=== PATIENT | male | born 1970 | race Hispanic/Latino ===

== ENCOUNTER 2018-03-08 17:03 | Inpatient (IN) | payer MEDICAID, MEDICARE ==
[2018-03-08 17:14] VITALS: BMI 27.4
--- NOTE | 2018-03-08 19:27 | C.PDOC ---
History Of Present Illness 47 y/o male presents with c/o epigastric abdominal pain for the last 2 days. He and his girlfriend checked into a residential today after leaving [place] hastily and has nowhere to go for HD tomorrow (usually T/H/Sat HD, L arm AV fistula), last HD was yesterday. He complaints of 5-10 watery stools today but denies any nausea, vomiting, fever, or chills. h/o Pancreatitis @ Age 19 with puss drained from abd/pancreas area, then pt became diabetic soon after. 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.), End Stage Renal Disease, Chronic Kidney Disease - [facility] Procedures DX ULTRASOUND-DIGESTIVE (03/17/15) ESOPHAGOGASTRODUODENOSCOPY [EGD] W/CLOSED BIOPSY (03/17/15) EXCISION OF STOMACH, ENDO, DIAGN (04/07/15) HEMODIALYSIS (03/13/15) PERFORMANCE OF URINARY FILTRATION, MULTIPLE (05/19/15) PERFORMANCE OF URINARY FILTRATION, SINGLE (05/29/15) Family History: States: Unknown Family Hx - Social History Hx Alcohol Use: No Hx Substance Use: No - Immunization History Hx Tetanus Toxoid Vaccination: No Hx Influenza Vaccination: Yes Hx Pneumococcal Vaccination: Yes Review Of Systems Constitutional: Negative for: Fever, Chills Cardiovascular: Negative for: Chest Pain Respiratory: Negative for: Shortness of Breath Gastrointestinal: Positive for: Abdominal Pain. Negative for: Nausea, Vomiting , Diarrhea Genitourinary: Negative for: Dysuria, Frequency, Incontinence Neurological: Negative for: Weakness, Dizziness Physical Exam - Physical Exam Appears: Non-toxic, No Acute Distress Skin: Normal Color, Warm, Dry Head: Atraumatic, Normacephalic Eye(s): bilateral: Normal Inspection, PERRL, EOMI Oral Mucosa: Moist Neck: Normal ROM Chest: Symmetrical Cardiovascular: Rhythm Regular, No Murmur Respiratory: Normal Breath Sounds, No Accessory Muscle Use Gastrointestinal/Abdominal: Soft, Tenderness (to the epigastrium), No Guarding, No Rebound Extremity: Bilateral: Atraumatic, Normal Color And Temperature, Normal ROM Neurological/Psych: Oriented x3, Normal Speech ED Course And Treatment - Laboratory Results Result Diagrams: 03/08/18 19:37 03/08/18 19:37 Lab Interpretation: Abnormal (BUN/creat elev, K+ wnl) ECG: Interpreted By Ut ECG Rhythm: Sinus Rhythm ECG Interpretation: Normal Rate From EC O2 Sat by Pulse Oximetry: 100 (RA) Pulse Ox Interpretation: Normal - Radiology CXR: Interpreted by Me CXR Interpretation: Yes: No Acute Disease - CT Scan/US CT Abd and Pelvis Other Rad Studies (CT/US): Read By Radiologist, Radiology Report Reviewed CT/US Interpretation: IMPRESSION: There is diffuse small bowel wall thickening , consistent with inflammation, infection, or infiltration. Nonspecific fluid- filled large bowel loops without a clear transition, possibly related to a diarrheal-type. illness. Please correlate clinically. Incidental, surgical, and other non-acute findings are described above. Reevaluation Time: 00:26 Reassessment Condition: Improved - Physician Consult Information Outcome Of Conversation: 0030: d/w Dr. Zuniga- Medicine Party Host, ok to admit. 0030: calls to consult with Nephrolog- Dr Muller covering Dr. Sharma's group, consult placed. Medical Decision Making Medical Decision Making: Suddenly relocated to this area without local Elevator Pilot- Nephrology consulted, consider HD Sat/Sun Diarrhea: non-infectuous pain and frequency controlled with Morphine Clinically dry, consider gentle hydration overnight. Pancreatitis Lipase 454 h/o same @ age 19 CT abd (without contrast) no sig findings of Pancreas. follow Lipase levels NPO D5NS Disposition Doctor Will See Patient In The: Hospital Counseled Patient/Family Regarding: Studies Performed, Diagnosis - Disposition Disposition: HOSPITALIZED Disposition Time: 00:31 Condition: GOOD Forms: [employer] ([place]) - Clinical Impression Clinical Impression: Diarrhea, Pancreatitis, ESRD (end stage renal disease) on dialysis - Scribe Statement The provider has reviewed the documentation as recorded by the Scribe (Avani Hawley) Provider Attestation: All medical record entries made by the Scribe were at my direction and personally dictated by me. I have reviewed the chart and agree that the record accurately reflects my personal performance of the history, physical exam, medical decision making, and the department course for this patient. I have also personally directed, reviewed, and agree with the discharge instructions and disposition.
[2018-03-08] MEDS ORDERED: Morphine 4 MG/ML VIAL ONE ×2 (19:39→23:18)
[2018-03-08 19:49] LABS: BASO # 0.1 K/uL (0.0-0.2); BASO % 0.7 % (0.0-2.0); EOS # 0.4 K/uL (0.0-0.7); EOS % 5.2 % (0.0-4.0); HEMOGLOBIN 11.7 g/dL (12.0-18.0); LYMPH # 1.4 K/uL (1.0-4.3); LYMPH % 16.5 % (20.0-40.0); MEAN CELL VOLUME 87.2 fL (80.0-94.0); MEAN CORPUSCULAR HEMOGLOBIN 28.3 pg (27.0-31.0); MEAN CORPUSCULAR HGB CONC 32.4 g/dL (33.0-37.0); MEAN PLATELET VOLUME 9.4 fL (7.2-11.7); MONO % 12.4 % (0.0-10.0); NEUT # 5.4 K/uL (1.8-7.0); NEUT % 65.2 % (50.0-75.0); RBC 4.16 Mil/uL (4.40-5.90); RED CELL DISTRIBUTION WIDTH 17.1 % (11.5-14.5); WHITE BLOOD COUNT 8.4 K/uL (4.8-10.8)
[2018-03-08 19:57] LABS: INR 1.1; PROTHROMBIN TIME 12.4 SECONDS (9.7-12.2)
[2018-03-08 20:12] LABS: ALB/GLOB RATIO 1.5 (1.0-2.1); ALBUMIN 4.3 g/dL (3.5-5.0); CALCIUM 9.1 mg/dl (8.6-10.4)
[2018-03-08 20:13] LABS: TROPONIN I 0.067 ng/mL (0.00-0.120)
[2018-03-08 22:54] LABS: SQUAMOUS EPITHIAL 51 /hpf (0-5); URINE BACTERIA RARE (<OCC); URINE BILIRUBIN NEGATIVE (NEGATIVE); URINE BLOOD TRACE (NEGATIVE); URINE CLARITY Hazy (Clear); URINE COLOR YELLOW (YELLOW); URINE GLUCOSE (UA) 3+ mg/dL (Normal); URINE LEUKOCYTE ESTERASE TRACE Leu/uL (Negative); URINE PROTEIN 3+ mg/dL (NEGATIVE); URINE UROBILINOGEN NORMAL mg/dL (0.2-1.0)
[2018-03-09] MEDS ORDERED: Dextrose 5%/0.9% NS 1,000 ML IV ONE (00:50)
[2018-03-09] MEDS: Dextrose 5%/0.9% NS 1,000 ML IV SCH ×3 (00:51→19:00)
[2018-03-09] MEDS: HYDROmorphone 0.5 mg/0.5 ml ISec IVP PRN ×4 (03:18→21:28)
[2018-03-09] MEDS: (Novolog) Insulin Aspart, Recombinant 100 u/ml 10 ml vial SC SCH ×4 (07:50→21:19)
[2018-03-09] MEDS: Enoxaparin 30 mg Syringe SC SCH (09:32)
[2018-03-09] MEDS ORDERED: DiphenhydrAMINE 50 mg/ml Inj IVP ONE (10:45)
--- NOTE | 2018-03-09 12:38 | RAD ---
Date of service: 03/08/2018 PROCEDURE: Radiographs of the chest and abdomen (obstructive series) HISTORY: abd pain COMPARISON: No prior. TECHNIQUE: AP radiograph of the chest, with upright and supine radiographs of the abdomen. FINDINGS: CHEST: Lungs: Clear. Cardiovascular: Normal size heart. No pulmonary vascular congestion. Pleura: No pleural fluid. No pneumothorax. Other findings: None. ABDOMEN AND PELVIS: Bowel: There are multiple small air-fluid levels in the abdomen. Free air: None. Bones: Unremarkable. Other findings: A battery pack overlies the lower abdomen. IMPRESSION: Multiple small air-fluid levels in the abdomen which likely represent diarrhea. Clear lungs.
[2018-03-09] MEDS: Insulin Detemir 100 units/ml Vial (Levemir) SC SCH (21:19)
--- NOTE | 2018-03-09 22:20 | CP.PCM.CON ---
History of Present Illness - History of Present Illness History of Present Illness: renal consult note 47 y/o male presents with c/o epigastric abdominal pain for the last 2 days. He and his girlfriend checked into a jail today after leaving [place] hastily and has nowhere to go for HD tomorrow (usually T/H/Sat HD, L arm AV fistula), last HD was yesterday. He complaints of 5-10 watery stools today but denies any nausea, vomiting, fever, or chills. h/o Pancreatitis @ Age 19 with puss drained from abd/pancreas area, then pt became diabetic soon after. he [facility] but now is back in in jail meds reviewed complete ros is negative fam hx reviewed social hx reviewed vss heent normal op moist no jvd s1s2 present nor michelle distress ao times 3 skin normal cooperative left forarm Av access plan esrd/htn/abdominal pain.diarrhea/dm/anemia hd will do today lytes reviewed anemia epo with hd as needed bp resume home meds abdominal pain with diarrhea work up per primary team will need opt hd placement Past Patient History - Infectious Disease Hx of Infectious Diseases: None - Past Medical History & Family History Past Medical History?: Yes - Past Social History Smoking Status: Never Smoked - CARDIAC Hx Hypertension: Yes - PULMONARY Hx Respiratory Disorders: No - NEUROLOGICAL Hx Neurological Disorder: No - HEENT Hx HEENT Problems: No - RENAL Hx Chronic Kidney Disease: Yes - ENDOCRINE/METABOLIC Hx Endocrine Disorders: Yes Hx Diabetes Mellitus Type 2: Yes - HEMATOLOGICAL/ONCOLOGICAL Hx Anemia: Yes - INTEGUMENTARY Hx Dermatological Problems: No - MUSCULOSKELETAL/RHEUMATOLOGICAL Hx Musculoskeletal Disorders: No Hx Falls: No - GASTROINTESTINAL Hx Gastritis: Yes Hx Pancreatitis: Yes ( 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.) - GENITOURINARY/GYNECOLOGICAL Hx Genitourinary Disorders: No - PSYCHIATRIC Hx Substance Use: No - SURGICAL HISTORY Hx Surgeries: Yes (AV fistula,left foot with 2pins and 1 plate) - ANESTHESIA Hx Anesthesia: Yes Hx Anesthesia Reactions: No Hx Malignant Hyperthermia: No Meds Allergies/Adverse Reactions: Allergies Allergy/AdvReac Type Severity Reaction Status Date / Time No Known Allergies Allergy Verified 03/08/18 17:12 - Medications Medications: Current Medications Amlodipine Besylate (Norvasc) 10 mg PO DAILY [facility] Last Admin: 03/09/18 09:33 Dose: Not Given Calcium Acetate (Phoslo) 667 mg PO ACTID [facility] Last Admin: 03/09/18 16:00 Dose: 667 mg Clonidine HCl (Catapres) 0.3 mg PO Q6 [facility] Last Admin: 03/09/18 17:21 Dose: 0.3 mg Enoxaparin Sodium (Lovenox) 30 mg SC DAILY [facility] Last Admin: 03/09/18 09:32 Dose: 30 mg Hydromorphone HCl (Dilaudid) 0.5 mg IVP Q6H PRN PRN Reason: Pain, severe (8-10) Last Admin: 03/09/18 21:28 Dose: 0.5 mg Dextrose/Sodium Chloride (Dextrose 5%/0.9% Ns 1000 Ml) 1,000 mls @ 100 mls/hr IV .Q10H [facility] Last Admin: 03/09/18 19:00 Dose: 100 mls/hr Insulin Aspart (Novolog) 0 unit SC ACHS [facility] PRN Reason: Protocol Last Admin: 03/09/18 21:19 Dose: Not Given Insulin Detemir (Levemir) 15 unit SC HS [facility] Last Admin: 03/09/18 21:19 Dose: Not Given Metoclopramide HCl (Reglan) 10 mg PO Q6H PRN PRN Reason: Nausea/Vomiting Results - Vital Signs Recent Vital Signs: Last Vital Signs Temp 98.1 F 03/09/18 15:00 Pulse 79 03/09/18 15:00 Resp 20 03/09/18 15:00 BP 180/77 H 03/09/18 15:00 Pulse Ox 99 03/09/18 15:00 - Labs Result Diagrams: 03/08/18 19:37 03/08/18 19:37 Labs: Laboratory Results - last 24 hr 03/08/18 03/09/18 03/09/18 22:39 07:22 11:14 POC Glucose (mg/dL) 122 H Urine Color Yellow Urine Clarity Hazy Urine pH 5.0 Ur Specific [place] 1.045 H Urine Protein 3+ H Urine Glucose (UA) 3+ H Urine Ketones Negative Urine Blood Trace H Urine Nitrate Negative Urine Bilirubin Negative Urine Urobilinogen Normal Ur Leukocyte Esterase Trace H Urine WBC (Auto) 12 H Urine RBC (Auto) 6 H Ur Squamous Epith Cells 51 H Ur Transition Epith Cell 3 Urine Bacteria Rare Hep Bs Antigen Negative Hep Bs Antibody Hepatitis C Antibody 03/09/18 03/09/18 03/09/18 11:14 11:14 13:32 POC Glucose (mg/dL) 127 H Urine Color Urine Clarity Urine pH Ur Specific [place] Urine Protein Urine Glucose (UA) Urine Ketones Urine Blood Urine Nitrate Urine Bilirubin Urine Urobilinogen Ur Leukocyte Esterase Urine WBC (Auto) Urine RBC (Auto) Ur Squamous Epith Cells Ur Transition Epith Cell Urine Bacteria Hep Bs Antigen Hep Bs Antibody Negative Hepatitis C Antibody Negative 03/09/18 03/09/18 16:51 21:06 POC Glucose (mg/dL) 175 H 146 H Urine Color Urine Clarity Urine pH Ur Specific [place] Urine Protein Urine Glucose (UA) Urine Ketones Urine Blood Urine Nitrate Urine Bilirubin Urine Urobilinogen Ur Leukocyte Esterase Urine WBC (Auto) Urine RBC (Auto) Ur Squamous Epith Cells Ur Transition Epith Cell Urine Bacteria Hep Bs Antigen Hep Bs Antibody Hepatitis C Antibody
--- NOTE | 2018-03-10 03:36 | HP ---
The patient is a 47-year-old male. The patient was seen and examined at the bedside on 03/09/2018. I am doing history and physical for 03/09/2018. CHIEF COMPLAINT: Abdominal pain. HISTORY OF PRESENT ILLNESS: Mr. Mike Woodall is a 47-year-old male with persistent epigastric abdominal pain for the last two days. He and his girlfriend checked into the halfway today after leaving [place] hastily and has no way to go for hemodialysis tomorrow. He does this three times a week. Last hemodialysis was yesterday. He complains of watery stool today but denies any nausea or vomiting. No fever. No chills. Has paracentesis done on 02/03/2018 , drained from abdominal pancreatic areas. Then, patient became diabetic soon after that as per the patient. I am seeing this patient for the first time. I do not know his history, and the patient is not a good historian. PAST MEDICAL HISTORY: Anemia, diabetes mellitus, gastritis, hypertension, pancreatitis, history of pseudopancreatic cyst, end-stage renal disease, chronic kidney disease. FAMILY HISTORY: Father and mother, noncontributory. HABITS: Right now no smoking, no drug, no ethanol. REVIEW OF SYSTEMS: The patient was seen and examined at bedside in dialysis center, still having abdominal pain. No nausea, vomiting, or diarrhea at this moment. No fever, no chills, no shortness of breath. No weakness, no dizziness. No dysuria, no frequency, no incontinence. PHYSICAL EXAMINATION: VITAL SIGNS: Temperature 99.7, pulse 79, respiratory rate 16, blood pressure 154/83, pulse oximetry is 100. HEENT: Head normocephalic, atraumatic. Eyes PERRLA. Extraocular muscles are intact. Conjunctivae clear. Nose is patent. Mucous membranes moist. NECK: Supple. No carotid bruit. No JVD or thyromegaly. CHEST: Bilaterally symmetrical. HEART: S1 and S2 positive. LUNGS: Clear to auscultation. ABDOMEN: Soft. Tender, especially in the left upper quadrant. EXTREMITIES: No edema, no cyanosis. NEUROLOGIC: The patient is awake, alert. Moving all four extremities. Having the dialysis. LABORATORY DATA: White blood cells 8.4, hemoglobin 11.7, hematocrit 36.2, and platelets 263. Sodium 142, potassium 4.1, BUN 38, creatinine 1, and glucose 177. ASSESSMENT AND PLAN: Mr. Mike Woodall is a 47-year-old male with renal insufficiency, on hemodialysis three times a week, hyperglycemia. CT and ultrasound done shows diffuse small bowel wall thickening consistent with inflammation, infection, or infiltration; nonspecific fluid filled large bowel loop without a clear transection, possibly related to diarrheal type illness. Nephrology consult called. Gastrointestinal consult called. The patient was nothing per mouth. He was very hungry. He wants to eat. Clear liquid started. Diarrhea is improving. Pancreatitis is improving. The patient has history of gastritis, hypertension, pancreatic pseudo cyst. We will repeat labs. Wait for the input from Gastroenterology. We will follow up. Brianna Zuniga MD [facility]
[2018-03-10] MEDS: Dextrose 5%/0.9% NS 1,000 ML IV SCH ×3 (04:15→17:42)
[2018-03-10] MEDS: HYDROmorphone 0.5 mg/0.5 ml ISec IVP PRN ×3 (04:15→17:35)
--- NOTE | 2018-03-10 07:36 | CP.PCM.CON ---
History of Present Illness - History of Present Illness History of Present Illness: Gen Sx: Dr Van PT is a 47M who presents to for hemodialysis as he had no where else to go. While in ED pt reported he has has persistent epigastric pain for 48 hours, accompanied by diarrhea. Pt denies any N/V, F/C. 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 At time of examination pt reports his pain has already improved. He does state his pain medication is not lasting long enough PMH: anemia, DM, gastritis and gastroparesis, htn, pancreatitis, psuedocyst, ESRd on HD PSH: gastric pacemaker, panc debridement Review of Systems - Review of Systems All systems: reviewed and no additional remarkable complaints except (as per hpi ) Past Patient History - Infectious Disease Hx of Infectious Diseases: None - Past Medical History & Family History Past Medical History?: Yes - Past Social History Smoking Status: Never Smoked - CARDIAC Hx Hypertension: Yes - PULMONARY Hx Respiratory Disorders: No - NEUROLOGICAL Hx Neurological Disorder: No - HEENT Hx HEENT Problems: No - RENAL Hx Chronic Kidney Disease: Yes - ENDOCRINE/METABOLIC Hx Endocrine Disorders: Yes Hx Diabetes Mellitus Type 2: Yes - HEMATOLOGICAL/ONCOLOGICAL Hx Anemia: Yes - INTEGUMENTARY Hx Dermatological Problems: No - MUSCULOSKELETAL/RHEUMATOLOGICAL Hx Musculoskeletal Disorders: No Hx Falls: No - GASTROINTESTINAL Hx Gastritis: Yes Hx Pancreatitis: Yes ( 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.) - GENITOURINARY/GYNECOLOGICAL Hx Genitourinary Disorders: No - PSYCHIATRIC Hx Substance Use: No - SURGICAL HISTORY Hx Surgeries: Yes (AV fistula,left foot with 2pins and 1 plate) - ANESTHESIA Hx Anesthesia: Yes Hx Anesthesia Reactions: No Hx Malignant Hyperthermia: No Meds Allergies/Adverse Reactions: Allergies Allergy/AdvReac Type Severity Reaction Status Date / Time No Known Allergies Allergy Verified 03/08/18 17:12 - Medications Medications: Current Medications Amlodipine Besylate (Norvasc) 10 mg PO DAILY [facility] Last Admin: 03/09/18 09:33 Dose: Not Given Calcium Acetate (Phoslo) 667 mg PO ACTID [facility] Last Admin: 03/09/18 16:00 Dose: 667 mg Clonidine HCl (Catapres) 0.3 mg PO Q6 [facility] Last Admin: 03/10/18 06:00 Dose: 0.3 mg Enoxaparin Sodium (Lovenox) 30 mg SC DAILY [facility] Last Admin: 03/09/18 09:32 Dose: 30 mg Hydromorphone HCl (Dilaudid) 0.5 mg IVP Q6H PRN PRN Reason: Pain, severe (8-10) Last Admin: 03/10/18 04:15 Dose: 0.5 mg Dextrose/Sodium Chloride (Dextrose 5%/0.9% Ns 1000 Ml) 1,000 mls @ 100 mls/hr IV .Q10H [facility] Last Admin: 03/10/18 06:45 Dose: Not Given Insulin Aspart (Novolog) 0 unit SC ACHS [facility] PRN Reason: Protocol Last Admin: 03/09/18 21:19 Dose: Not Given Insulin Detemir (Levemir) 15 unit SC HS [facility] Last Admin: 03/09/18 21:19 Dose: Not Given Metoclopramide HCl (Reglan) 10 mg PO Q6H PRN PRN Reason: Nausea/Vomiting Physical Exam - Constitutional Appears: Non-toxic, Unkempt - Eye Exam Eye Exam: Normal appearance. absent: Scleral icterus - ENT Exam ENT Exam: Mucous Membranes Moist - Respiratory Exam Respiratory Exam: absent: Accessory Muscle Use, Respiratory Distress - Cardiovascular Exam Cardiovascular Exam: REGULAR RHYTHM. absent: Tachycardia - GI/Abdominal Exam GI & Abdominal Exam: Soft, Tenderness (epigastric but minimal). absent: Distended, Firm, Guarding, Hernia - Rectal Exam Rectal Exam: Deferred - Extremities Exam Extremities exam: Negative for: pedal edema Results - Vital Signs Recent Vital Signs: Last Vital Signs Temp 97.7 F 03/09/18 23:00 Pulse 73 03/10/18 05:30 Resp 20 03/10/18 05:30 BP 166/76 H 03/10/18 05:30 Pulse Ox 99 03/10/18 05:30 - Labs Result Diagrams: 03/08/18 19:37 03/08/18 19:37 Labs: Laboratory Results - last 24 hr 03/09/18 03/09/18 03/09/18 11:14 11:14 11:14 POC Glucose (mg/dL) Hep Bs Antigen Negative Hep Bs Antibody Negative Hepatitis C Antibody Negative 03/09/18 03/09/18 03/09/18 13:32 16:51 21:06 POC Glucose (mg/dL) 127 H 175 H 146 H Hep Bs Antigen Hep Bs Antibody Hepatitis C Antibody 03/10/18 07:15 POC Glucose (mg/dL) 172 H Hep Bs Antigen Hep Bs Antibody Hepatitis C Antibody Assessment & Plan - Assessment and Plan (Free Text) Assessment: 47M with ESRD on HD; acute pancreatitis Plan: ok for CLD cont IVF rec GI consult HD today no plans for surgical intervention will cont to follow will d/w Dr Carlota Meier, PGY4
[2018-03-10 08:17] LABS: MEAN CELL VOLUME 87.1 fL (80.0-94.0); MEAN CORPUSCULAR HEMOGLOBIN 28.9 pg (27.0-31.0); MEAN CORPUSCULAR HGB CONC 33.2 g/dL (33.0-37.0); MEAN PLATELET VOLUME 9.2 fL (7.2-11.7); RBC 3.28 Mil/uL (4.40-5.90); RED CELL DISTRIBUTION WIDTH 16.6 % (11.5-14.5); WHITE BLOOD COUNT 5.2 K/uL (4.8-10.8)
[2018-03-10] MEDS: (Novolog) Insulin Aspart, Recombinant 100 u/ml 10 ml vial SC SCH ×4 (08:20→21:40)
[2018-03-10 08:27] LABS: IRON 53 ug/dL (49-181)
[2018-03-10 08:29] LABS: HEMOGLOBIN 9.5 g/dL (12.0-18.0)
[2018-03-10 08:30] LABS: CALCIUM 8.8 mg/dl (8.6-10.4)
[2018-03-10 08:36] LABS: % IRON SATURATION 23 (20-55); TOTAL IRON BINDING CAPACITY 229 ug/dL (250-450)
[2018-03-10] MEDS ORDERED: Tramadol 25 mg PO PRN (08:55)
[2018-03-10 09:33] LABS: FOLATE 4.6 ng/mL
[2018-03-10] MEDS: Enoxaparin 30 mg Syringe SC SCH (10:39)
--- NOTE | 2018-03-10 11:00 | CP.PCM.CON ---
History of Present Illness - History of Present Illness History of Present Illness: Gi consult requested by Dr Zuniga- This is a 47 year old M who presents to ER for hemodialysis as he had no where else to go and lives in a [facility]. He does not have outpatient follow up. He vwas last admitted with GI at [facility] in 2014 when he had EGD that showed hiatal hernia and grade B esophagitis and chronic pancreatitis. He presents with loose watrey stools that he has had for more than 3 years. He had EUS with Dr Reed for pancreatic tail mass which was negative for malignancy. He complains of epigastric pain today and diarrhea with fatty foods associated with nausea and vomiting. He does not take pancreatic enzymes as outpatient. He had HD yesterday Review of Systems - Review of Systems Review of Systems: 12 point ROS unremarkable except that documented in HPI Past Patient History - Infectious Disease Hx of Infectious Diseases: None - Past Medical History & Family History Past Medical History?: Yes - Past Social History Smoking Status: Never Smoked - CARDIAC Hx Hypertension: Yes - PULMONARY Hx Respiratory Disorders: No - NEUROLOGICAL Hx Neurological Disorder: No - HEENT Hx HEENT Problems: No - RENAL Hx Chronic Kidney Disease: Yes - ENDOCRINE/METABOLIC Hx Endocrine Disorders: Yes Hx Diabetes Mellitus Type 2: Yes - HEMATOLOGICAL/ONCOLOGICAL Hx Anemia: Yes - INTEGUMENTARY Hx Dermatological Problems: No - MUSCULOSKELETAL/RHEUMATOLOGICAL Hx Musculoskeletal Disorders: No Hx Falls: No - GASTROINTESTINAL Hx Gastritis: Yes Hx Pancreatitis: Yes ( 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.) - GENITOURINARY/GYNECOLOGICAL Hx Genitourinary Disorders: No - PSYCHIATRIC Hx Substance Use: No - SURGICAL HISTORY Hx Surgeries: Yes (AV fistula,left foot with 2pins and 1 plate) - ANESTHESIA Hx Anesthesia: Yes Hx Anesthesia Reactions: No Hx Malignant Hyperthermia: No Meds Allergies/Adverse Reactions: Allergies Allergy/AdvReac Type Severity Reaction Status Date / Time No Known Allergies Allergy Verified 03/08/18 17:12 - Medications Medications: Current Medications Amlodipine Besylate (Norvasc) 10 mg PO DAILY [facility] Last Admin: 03/10/18 10:39 Dose: 10 mg Calcium Acetate (Phoslo) 667 mg PO ACTID [facility] Last Admin: 03/10/18 08:20 Dose: 667 mg Clonidine HCl (Catapres) 0.3 mg PO Q6 [facility] Last Admin: 03/10/18 06:00 Dose: 0.3 mg Enoxaparin Sodium (Lovenox) 30 mg SC DAILY [facility] Last Admin: 03/10/18 10:39 Dose: 30 mg Hydromorphone HCl (Dilaudid) 0.5 mg IVP Q4H PRN PRN Reason: Pain, severe (8-10) Dextrose/Sodium Chloride (Dextrose 5%/0.9% Ns 1000 Ml) 1,000 mls @ 100 mls/hr IV .Q10H [facility] Last Admin: 03/10/18 06:45 Dose: Not Given Insulin Aspart (Novolog) 0 unit SC ACHS [facility] PRN Reason: Protocol Last Admin: 03/10/18 08:20 Dose: 1 unit Insulin Detemir (Levemir) 15 unit SC [facility] Last Admin: 03/09/18 21:19 Dose: Not Given Metoclopramide HCl (Reglan) 10 mg PO Q6H PRN PRN Reason: Nausea/Vomiting Tramadol HCl (Ultram) 25 mg PO TID PRN PRN Reason: Pain, moderate (4-7) Physical Exam - Constitutional Appears: Well, Non-toxic, No Acute Distress - Head Exam Head Exam: ATRAUMATIC, NORMAL INSPECTION, NORMOCEPHALIC - Eye Exam Eye Exam: EOMI, Normal appearance, PERRL - ENT Exam ENT Exam: Mucous Membranes Moist, Normal Exam - Respiratory Exam Respiratory Exam: Clear to Auscultation Bilateral, NORMAL BREATHING PATTERN - Cardiovascular Exam Cardiovascular Exam: REGULAR RHYTHM, RRR, +S1, +S2 - GI/Abdominal Exam GI & Abdominal Exam: Distended, Normal Bowel Sounds, Soft - Extremities Exam Additional comments: left forearm HD fistula - Neurological Exam Neurological exam: Alert, Oriented x3 - Psychiatric Exam Psychiatric exam: Normal Affect, Normal Mood - Skin Skin Exam: Dry, Intact, Normal Color Results - Vital Signs Recent Vital Signs: Last Vital Signs Temp 98.3 F 03/10/18 08:08 Pulse 71 03/10/18 08:08 Resp 20 03/10/18 08:08 BP 199/82 H 03/10/18 08:08 Pulse Ox 98 03/10/18 08:08 - Labs Result Diagrams: 03/10/18 08:03 03/10/18 08:03 Labs: Laboratory Results - last 24 hr 09/22/18 09/22/18 09/22/18 11:14 11:14 11:14 WBC RBC Hgb Hct MCV MCH MCHC RDW Plt Count MPV Sodium Potassium Chloride Carbon Dioxide Anion Gap BUN Creatinine Est GFR ( Amer) Est GFR (Non-Af Amer) POC Glucose (mg/dL) Random Glucose Hemoglobin A1c Calcium Iron TIBC % Saturation Triglycerides Cholesterol LDL Cholesterol Direct HDL Cholesterol Vitamin B12 Folate TSH 3rd Generation Hep Bs Antigen Negative Hep Bs Antibody Negative Hepatitis C Antibody Negative 03/09/18 03/09/18 03/09/18 13:32 16:51 21:06 WBC RBC Hgb Hct MCV MCH MCHC RDW Plt Count MPV Sodium Potassium Chloride Carbon Dioxide Anion Gap BUN Creatinine Est GFR ( Amer) Est GFR (Non-Af Amer) POC Glucose (mg/dL) 127 H 175 H 146 H Random Glucose Hemoglobin A1c Calcium Iron TIBC % Saturation Triglycerides Cholesterol LDL Cholesterol Direct HDL Cholesterol Vitamin B12 Folate TSH 3rd Generation Hep Bs Antigen Hep Bs Antibody Hepatitis C Antibody 03/10/18 03/10/18 03/10/18 07:15 08:03 08:03 WBC RBC Hgb Hct MCV MCH MCHC RDW Plt Count MPV Sodium Potassium Chloride Carbon Dioxide Anion Gap BUN Creatinine Est GFR ( Amer) Est GFR (Non-Af Amer) POC Glucose (mg/dL) 172 H Random Glucose Hemoglobin A1c Calcium Iron 53 TIBC 229 L % Saturation 23 Triglycerides 85 D Cholesterol 93 LDL Cholesterol Direct 33 HDL Cholesterol 30 Vitamin B12 483 Folate 4.6 TSH 3rd Generation Hep Bs Antigen Hep Bs Antibody Hepatitis C Antibody 03/10/18 03/10/18 03/10/18 08:03 08:03 08:03 WBC 5.2 RBC 3.28 L Hgb 9.5 L D Hct 28.6 L MCV 87.1 MCH 28.9 MCHC 33.2 RDW 16.6 H Plt Count 174 MPV 9.2 Sodium 140 Potassium 4.2 Chloride 106 Carbon Dioxide 22 Anion Gap 16 BUN 26 H Creatinine 6.3 H Est GFR ( Amer) 12 Est GFR (Non-Af Amer) 10 POC Glucose (mg/dL) Random Glucose 154 H Hemoglobin A1c 7.5 H D Calcium 8.8 Iron TIBC % Saturation Triglycerides Cholesterol LDL Cholesterol Direct HDL Cholesterol Vitamin B12 Folate TSH 3rd Generation 0.56 Hep Bs Antigen Hep Bs Antibody Hepatitis C Antibody Assessment & Plan - Assessment and Plan (Free Text) Assessment: 47 yr old M with DM, diabetic gastroparesis, chronic pancreatitis with panc tail lesion s/p EGD one week ago which showed gastritis as per patient and EUS 3 years ago which was negative for pancreatic malignancy admitted with chronic diarrhea with non compliance. Will send stool infectious work up and start pancreatic enzymes. Needs outpatient compliance. Plan: - low fat meals as tolerated - pancreatic enzymes tid - stool infectious work up - EGd done last week at outside facility- primary team to gather reuslts - prokinetics - Will sign off - No further GI work up necessary
[2018-03-10] MEDS: LIPASE/PROTEASE/AMYLASE 21,000 U ECC PO SCH ×2 (12:30→17:35)
[2018-03-10] MEDS: Insulin Detemir 100 units/ml Vial (Levemir) SC SCH (22:25)
[2018-03-11] MEDS: Dextrose 5%/0.9% NS 1,000 ML IV SCH (02:00)
[2018-03-11] MEDS: HYDROmorphone 0.5 mg/0.5 ml ISec IVP PRN ×6 (05:09→21:52)
[2018-03-11 06:44] LABS: HEMOGLOBIN 9.3 g/dL (12.0-18.0); MEAN CELL VOLUME 87.3 fL (80.0-94.0); MEAN CORPUSCULAR HEMOGLOBIN 28.5 pg (27.0-31.0); MEAN CORPUSCULAR HGB CONC 32.7 g/dL (33.0-37.0); RBC 3.25 Mil/uL (4.40-5.90); RED CELL DISTRIBUTION WIDTH 16.6 % (11.5-14.5); WHITE BLOOD COUNT 5.9 K/uL (4.8-10.8)
[2018-03-11 07:15] LABS: CALCIUM 8.7 mg/dl (8.6-10.4)
[2018-03-11] MEDS: (Novolog) Insulin Aspart, Recombinant 100 u/ml 10 ml vial SC SCH ×4 (08:17→21:48)
--- NOTE | 2018-03-11 09:01 | PN ---
DATE: 03/10/2018 SUBJECTIVE: The patient is a 47-year-old male. The patient was seen and examined at the bedside on 03/10/2018. Looking comfortable. was sitting on the bedside also. Sleepy, arousable. Moving all four extremities. No fever. No chills. Feeling hungry. Abdominal pain is getting little bit better. PHYSICAL EXAMINATION: VITAL SIGNS: Temperature 98.6, pulse 71, respiratory rate 20, blood pressure 119/82, pulse oximetry 98. HEENT: Head is normocephalic and atraumatic. Eyes PERRLA. Extraocular muscles intact. Conjunctivae clear. Nose patent. NECK: Supple. No carotid bruit. No JVD or thyromegaly. CHEST: Bilaterally symmetrical. HEART: S1 and S2 positive. LUNGS: Clear to auscultation. ABDOMEN: Soft. Bowel sounds are present. No organomegaly. EXTREMITIES: No edema. No cyanosis. NEUROLOGICAL: The patient is sleepy, but arousable. Moving all four extremities. No focal deficits. LABORATORY DATA: White blood cells 5.3, hemoglobin 9.8, hematocrit 28.6, platelets 174. Sodium 140, potassium 4.2, BUN 26, creatinine 2.6, glucose 154. ASSESSMENT AND PLAN: The patient is a 47-year-old male with anemia, renal insufficiency, hyperglycemia, diabetes mellitus, gastroparesis, chronic pancreatitis with pancreatic tail lesion. Has esophagogastroduodenoscopy one week ago, which showed gastritis. As per the patient, endoscopic ultrasonography three years ago, which was negative for pancreatic malignancy. Admitted with chronic diarrhea with no known complaint. Stools were sent for infections and Clostridium difficile toxin colitis. pancreatic enzymes. Need outpatient compliance. Urge to get outpatient compliance. Low-fat diet. Pancreatic enzymes three times a day. Esophagogastroduodenoscopy done last week at outpatient facility as per the patient. The [facility] and sometimes it is hard for him to handle dialysis. have outpatient followup. Last, he was admitted in 2014 with gastrointestinal problems at [facility]. Has hiatal hernia, grade B esophagitis, chronic pancreatitis. Endoscopic ultrasonography was done with Dr. Reed for pancreatic tail mass, which was negative for malignancy. History of pancreatic pseudocyst, arteriovenous fistula, left foot with two pins and one plate. Continue Norvasc for blood pressure, PhosLo, Catapres, Lovenox for deep venous thrombosis prophylaxis, Dilaudid for abdominal pain. Continue intravenous fluid, insulin coverage, Reglan for gastroparesis. Reviewed Gastroenterology notes. Getting dialysis. Repeat labs. We will follow up. Brianna Zuniga MD MTDD
[2018-03-11] MEDS: LIPASE/PROTEASE/AMYLASE 21,000 U ECC PO SCH ×3 (09:11→17:16)
[2018-03-11] MEDS: Enoxaparin 30 mg Syringe SC SCH (09:41)
--- NOTE | 2018-03-11 09:53 | CP.PCM.PN ---
Subjective - Date & Time of Evaluation Date of Evaluation: 03/11/18 Time of Evaluation: 09:51 - Subjective Subjective: General Surgery: Dr Van Pt S&e. Resumed CLD yesterday. Continues to have epigastric pain on and off. Continues to require narcotics for control. Denies any f/c, n/v. US ordered this AM to r/o gallstone pancreatitis. There are no stones present, no sludge present, GB wall is normal thickeness and there is no surrounding edema. Objective - Vital Signs/Intake and Output Vital Signs (last 24 hours): Temp Pulse Resp BP Pulse Ox 97.9 F 64 20 186/73 H 98 03/10/18 23:56 03/11/18 06:01 03/11/18 06:01 03/11/18 06:01 03/11/18 06:01 Intake and Output: 03/11/18 03/11/18 06:59 18:59 Intake Total 520 Balance 520 - Medications Medications: Current Medications Amlodipine Besylate (Norvasc) 10 mg PO DAILY [facility] Last Admin: 03/11/18 09:49 Dose: Not Given Calcium Acetate (Phoslo) 667 mg PO ACTID [facility] Last Admin: 03/11/18 08:40 Dose: 667 mg Clonidine HCl (Catapres) 0.3 mg PO Q6 [facility] Last Admin: 03/11/18 06:02 Dose: 0.3 mg Docusate Sodium (Colace) 100 mg PO DAILY [facility] Last Admin: 03/11/18 09:41 Dose: 100 mg Enoxaparin Sodium (Lovenox) 30 mg SC DAILY [facility] Last Admin: 03/11/18 09:41 Dose: 30 mg Hydromorphone HCl (Dilaudid) 0.5 mg IVP Q4H PRN PRN Reason: Pain, severe (8-10) Last Admin: 03/11/18 09:42 Dose: 0.5 mg Insulin Aspart (Novolog) 0 unit SC [facility] PRN Reason: Protocol Last Admin: 03/11/18 08:17 Dose: Not Given Insulin Detemir (Levemir) 15 unit SC HS [facility] Last Admin: 03/10/18 22:25 Dose: Not Given Losartan Potassium (Cozaar) 50 mg PO DAILY [facility] Last Admin: 03/11/18 09:41 Dose: 50 mg Metoclopramide HCl (Reglan) 10 mg PO Q6H PRN PRN Reason: Nausea/Vomiting Pantoprazole Sodium (Protonix Inj) 40 mg IVP DAILY [facility] Last Admin: 03/11/18 09:41 Dose: 40 mg Tramadol HCl (Ultram) 25 mg PO TID PRN PRN Reason: Pain, moderate (4-7) - Labs Labs: 03/11/18 06:32 03/11/18 06:32 PT 12.4 SECONDS (9.7-12.2) H 03/08/18 19:37 INR 1.1 03/08/18 19:37 APTT 31 SECONDS (21-34) 03/08/18 19:37 - Constitutional Appears: Non-toxic, No Acute Distress - ENT Exam ENT Exam: Mucous Membranes Moist - Respiratory Exam Respiratory Exam: absent: Accessory Muscle Use, Respiratory Distress - Cardiovascular Exam Cardiovascular Exam: REGULAR RHYTHM. absent: Tachycardia - GI/Abdominal Exam GI & Abdominal Exam: Soft, Tenderness (epigastric). absent: Distended, Firm - Neurological Exam Neurological Exam: Alert, Awake Assessment and Plan - Assessment and Plan (Free Text) Assessment: 47M with ESRD admitted for epigastric pain Plan: US shows no biliary pathology pt started on protonix 40mg IV daily would continue hydration until pt no longer has pain - will defer to medical team for this as pt ESRD and previous fluid orders discontinued no plans for surgical intervention, please reconsult PRN d/w Dr Carlota Meier, PGY4
--- NOTE | 2018-03-11 15:46 | US ---
Date of service: 03/11/2018 HISTORY: hx pancreatitis COMPARISON: 05/05/2015 CT abdomen and pelvis. TECHNIQUE: Sonographic evaluation of the abdomen. FINDINGS: LIVER: Measures 17.7 cm. Hepatopedal blood flow. Fatty infiltration manifest ultrasonographically as increased echogenicity of the liver parenchyma. No mass. No intrahepatic bile duct dilatation. GALLBLADDER: Unremarkable. No gallstones. COMMON BILE DUCT: Measures 6.3 mm. No stones. No dilatation. PANCREAS: Unremarkable as visualized. No mass. No ductal dilatation. RIGHT KIDNEY: Measures 4 x 9.3cm. Normal echogenicity. No calculus, mass, or hydronephrosis. LEFT KIDNEY: Measures 4.2 x 9.1cm. Normal echogenicity. No calculus, mass, or hydronephrosis. Incidental simple cyst midpole region 2.1 cm SPLEEN: Top-normal in size common normal contour. AORTA: No aneurysmal dilatation. IVC: Unremarkable. OTHER FINDINGS: Incompletely visualize right pleural effusion. IMPRESSION: No acute findings related to/accounting for the clinical presentation. Hepatosplenomegaly. Incidental right pleural effusion.
--- NOTE | 2018-03-11 16:12 | CP.PCM.PN ---
Subjective - Date & Time of Evaluation Date of Evaluation: 03/11/18 Time of Evaluation: 16:09 - Subjective Subjective: Nephrology Consultation Note Assessment: Stable chronic pancreatitis Diabetic chronic Kidney Disease (E11.22) Hypertensive Chronic Kidney Disease (I12.0) End stage renal disease (N18.6) dependence on hemodialysis (Z99.2) (TTS) via AVF Anemia (D64.9), Hyperphosphatemia (E83.39), Secondary Hyperparathyroidism (E21.1 ), HTN (I12.0) Plan: No acute need for dialysis today. Will plan for dialysis tomorrow. Continue with Nephrovite 1 tab/day. PRBC as needed for anemia. not on YANELY with dialysis as last Hb 9.3 but high BP. check Ferritin Continue with phos binders, last phos level: check BP control with meds as ordered. Patient on RAAS kathy as losartan Glycemic control, Dialysis consistent diet Further work up/management as per primary team Dose meds/antibiotics (if needed) for ESRD status. Avoid fleets enema/magnesium based laxatives. SW consult for outpt HD placement Thanks for allowing me to participate in care of your patient. Will follow patient with you. Please call if any Qs. had d/w team Dr Thor Ward Office: [phone] Subjective: Noted events overnight. Patients feels okay. Denies chest pain, palpitation, shortness of breath, leg swelling. All other negative except c/o loose stool and pain abdomen Physical Examination: General Appearance: Comfortable, in no acute respiratory distress, co-operative . Vitals reviewed and noted as below Head; Atraumatic, normocephalic ENT: no ulcers no thrush. Tongue is midline. Oropharynx: no rash or ulcers. EYES: Pupils are equal, round and reactive to light accommodation. Eye muscles and extraocular movement intact. Sclera is anicteric. Neck; supple no lymphadenopathy, no thyromegaly or bruit Lungs: Normal respiratory rate/effort. Breath sounds bilateral equal and clear Heart: Normal rate. s1s2 normal. No rub or gallop. Extremities: no edema. No varicose veins Neurological: Patient is alert, awake and oriented to person, place and time. No focal deficit. Strength bilateral appropriate and equal Skin: Warm and dry. Normal turgor. No rash. Palpitation: Normal elasticity for age Abdomen: Abdomen is soft. Bowel sounds +. There is no abdominal tenderness, no guarding/rigidity or organomegaly Psych: normal insight and normal affect/mood MSK: no joint tenderness or swelling. Digits and nails normal, no deformity : kidney or bladder not palpable Access: AVF left Labs/imaging reviewed. Past medical history, past surgical history, family history, social history, allergy reviewed and noted as below Family Hx: no hx of CKD. Non contributory Objective - Vital Signs/Intake and Output Vital Signs (last 24 hours): Temp Pulse Resp BP Pulse Ox 97.3 F L 58 L 20 139/65 97 03/11/18 15:00 03/11/18 15:00 03/11/18 15:00 03/11/18 15:00 03/11/18 15:00 Intake and Output: 03/11/18 03/11/18 06:59 18:59 Intake Total 520 480 Balance 520 480 - Medications Medications: Current Medications Amlodipine Besylate (Norvasc) 10 mg PO DAILY [facility] Last Admin: 03/11/18 09:49 Dose: Not Given Calcium Acetate (Phoslo) 667 mg PO ACTID [facility] Last Admin: 03/11/18 12:34 Dose: 667 mg Carvedilol (Coreg) 6.25 mg PO BID [facility] Last Admin: 03/11/18 12:34 Dose: 6.25 mg Clonidine HCl (Catapres) 0.3 mg PO Q6 [facility] Last Admin: 03/11/18 12:34 Dose: 0.3 mg Docusate Sodium (Colace) 100 mg PO DAILY [facility] Last Admin: 03/11/18 09:41 Dose: 100 mg Enoxaparin Sodium (Lovenox) 30 mg SC DAILY [facility] Last Admin: 03/11/18 09:41 Dose: 30 mg Hydromorphone HCl (Dilaudid) 0.5 mg IVP Q4H PRN PRN Reason: Pain, severe (8-10) Last Admin: 03/11/18 13:43 Dose: 0.5 mg Insulin Aspart (Novolog) 0 unit SC ACHS [facility] PRN Reason: Protocol Last Admin: 03/11/18 11:37 Dose: Not Given Insulin Detemir (Levemir) 15 unit SC HS [facility] Last Admin: 03/10/18 22:25 Dose: Not Given Losartan Potassium (Cozaar) 50 mg PO DAILY [facility] Last Admin: 03/11/18 09:41 Dose: 50 mg Metoclopramide HCl (Reglan) 10 mg PO Q6H PRN PRN Reason: Nausea/Vomiting Pantoprazole Sodium (Protonix Inj) 40 mg IVP DAILY [facility] Last Admin: 03/11/18 09:41 Dose: 40 mg Tramadol HCl (Ultram) 25 mg PO TID PRN PRN Reason: Pain, moderate (4-7) Vitamin B Complex/Vit C/Folic Acid (Nephro-Arlyn) 1 tab PO 0800 [facility] - Labs Labs: 03/11/18 06:32 03/11/18 06:32 PT 12.4 SECONDS (9.7-12.2) H 03/08/18 19:37 INR 1.1 03/08/18 19:37 APTT 31 SECONDS (21-34) 03/08/18 19:37
[2018-03-11 16:46] LABS: BASO % 0.4 % (0.0-2.0); EOS # 0.3 K/uL (0.0-0.7); EOS % 4.9 % (0.0-4.0); HEMOGLOBIN 9.8 g/dL (12.0-18.0); LYMPH % 16.4 % (20.0-40.0); MEAN CELL VOLUME 87.8 fL (80.0-94.0); MEAN CORPUSCULAR HEMOGLOBIN 28.4 pg (27.0-31.0); MEAN CORPUSCULAR HGB CONC 32.4 g/dL (33.0-37.0); MEAN PLATELET VOLUME 9.4 fL (7.2-11.7); MONO # 0.6 K/uL (0.0-0.8); NEUT # 4.4 K/uL (1.8-7.0); NEUT % 68.3 % (50.0-75.0); RBC 3.45 Mil/uL (4.40-5.90); RED CELL DISTRIBUTION WIDTH 16.7 % (11.5-14.5); WHITE BLOOD COUNT 6.4 K/uL (4.8-10.8)
--- NOTE | 2018-03-11 18:49 | CARD ---
APPROVED REPORT Date of service: 03/08/2018 EKG Measurement Heart [id number] <Conclusion> Normal sinus rhythm Right atrial enlargement LVH Borderline ECG
[2018-03-11] MEDS: Insulin Detemir 100 units/ml Vial (Levemir) SC SCH (21:50)
[2018-03-12] MEDS: HYDROmorphone 0.5 mg/0.5 ml ISec IVP PRN ×3 (04:10→17:40)
[2018-03-12 06:46] LABS: CALCIUM 9.1 mg/dl (8.6-10.4)
[2018-03-12] MEDS: (Novolog) Insulin Aspart, Recombinant 100 u/ml 10 ml vial SC SCH ×4 (08:21→21:36)
[2018-03-12] MEDS: Multivitamin Vitamin B Complex (Nephro-Vite) Tab PO SCH (08:23)
[2018-03-12] MEDS: LIPASE/PROTEASE/AMYLASE 21,000 U ECC PO SCH ×3 (08:25→17:34)
--- NOTE | 2018-03-12 08:41 | PN ---
DATE: 03/11/2018 The patient is a 47-year-old male. SUBJECTIVE: The patient was seen and examined at the bedside on 03/11/2018, complaining about he is hungry, just on clear liquid diet , He is getting pain medication every 4 weeks. Discussion done with patient and it was made clear that if you are pain-free and you do not have pancreatitis, we can give you food; but if you have pain, we cannot. The patient understands that and wants the food. PHYSICAL EXAMINATION: VITAL SIGNS: Temperature 97.9, pulse 54, respiratory rate 20, blood pressure 186/73, pulse oximetry 98. HEENT: Head is normocephalic and atraumatic. Eyes; PERRLA. Extraocular muscles are intact. Conjunctivae are clear. Nose is patent. Mucous membranes are moist. NECK: Supple. No carotid bruits, JVD, or thyromegaly. CHEST: Bilaterally symmetrical. HEART: S1 and S2 positive. LUNGS: Clear to auscultation. ABDOMEN: Soft. Bowel sounds present. No organomegaly. EXTREMITIES: No edema. No cyanosis. NEUROLOGIC: The patient is awake and alert. Moving all four extremities. No focal deficits. MEDICATIONS: Amlodipine, calcium, Catapres, Colace, Lovenox, Dilaudid, insulin, losartan, metoprolol, pantoprazole, tramadol. LABORATORY DATA: White blood cells 5.9, hemoglobin 9.2, hematocrit 28.7, and platelet 151. Sodium 135, potassium 4.8, BUN 27, creatinine 7.6, glucose 159. ASSESSMENT AND PLAN: Mr. Woodall is a 47-year-old male with anemia; renal insufficiency; hyperglycemia, has end-stage renal disease, on hemodialysis three times a week; has pancreatitis. He is almost n.p.o., this starvation is under control. Seen by Dr. Thor Ward. Does not need repeat labs. Gastrointestinal and deep venous thrombosis prophylaxes. We will follow up. Brianna Zuniga MD MTDMary
[2018-03-12] MEDS ORDERED: DiphenhydrAMINE 50 mg/ml Inj IVP STA (08:59)
[2018-03-12] MEDS: Enoxaparin 30 mg Syringe SC SCH (09:16)
--- NOTE | 2018-03-12 11:13 | CT ---
Date of service: 03/08/2018 PROCEDURE: CT Abdomen and Pelvis without intravenous contrast HISTORY: pancreatitis, renal failure COMPARISON: Abdomen pelvis CT without contrast 05/05/2015. TECHNIQUE: Helical CT of the abdomen and pelvis was performed without oral or intravenous contrast as per referring physician request. Coronal and sagittal reformats were generated. Contrast dose: None Radiation dose: Total exam DLP = 416.05 mGy-cm. This CT exam was performed using one or more of the following dose reduction techniques: Automated exposure control, adjustment of the mA and/or kV according to patient size, and/or use of iterative reconstruction technique. FINDINGS: LOWER THORAX: Mildly prominent heart size. No pulmonary vascular congestion visualized at the bases. No pericardial effusion identified in the interval. Minimal right pleural effusion identified. Small hiatal hernia is reiterated. LIVER: No focal lesion identified throughout the liver. Calcifications at the proximal branches of the hepatic artery are identified. GALLBLADDER AND BILE DUCTS: Gallbladder is contracted and otherwise appears unremarkable. PANCREAS: No definite peripancreatic reaction or fluid collection is appreciable and there is no overt dilatation of the pancreatic duct identified in this noncontrast examination. No definitive pancreatic calcifications. SPLEEN: Unremarkable. ADRENALS: Unremarkable. No mass. KIDNEYS AND URETERS: Bilateral renal atrophy is appreciated in the interval with no obstructive uropathy appreciated bilaterally. There is a stable cyst identified at the mid to lower pole left kidney measuring 1.3 cm. VASCULATURE: Extensive vascular calcifications seen throughout the abdomen and pelvis in the interval though the abdominal aorta appears less involved than its branches, potentially a function of diabetes. Clinically correlate further. In addition, serpiginous vessels are seen at the left upper quadrant abdomen which are nonspecific but suspicious for potential varices. No overt cirrhotic pattern is seen related to the liver however. BOWEL: There is no bowel obstruction identified with the stomach distended with retained food and fluid. Gastric neural stimulator is identified in situ with generator overlying the left pectoralis muscles and solitary lead extending into the perineal space abutting the anterior wall of the distal fundus/proximal antrum. Liquid fecal material is seen throughout the majority of the colon sparing only the distal segment and may reflect diarrhea. There is significant mural thickening identified involving at least mid and distal small bowel loops with hazy local perienteric reaction within the mesentery. This is suspicious for segmental enteritis, of indeterminate etiology. APPENDIX: Unremarkable. Normal appendix. PERITONEUM: No ascites or free intra peritoneal gas. Limited mesenteric reaction appears to be related to enteritis pattern discussed above in bowel section. LYMPH NODES: No significant lymphadenopathy identified. BLADDER: Urinary bladder is completely decompressed and is poorly evaluated. REPRODUCTIVE: Prostate gland is mildly enlarged. Canal implant is now identified inserted with pump device overlying the right inguinal region. BONES: No acute fracture. OTHER FINDINGS: None. IMPRESSION: 1. Findings suggestive of segmental enteritis affecting at least the mid and distal small bowel and likely related to diarrheal type pattern of fluid in the large bowel. No bowel obstruction or free intrarenal gas. No ascites. 2. No overt CT pattern to suggest pancreatitis. Clinically correlate further as this is not exclude pancreatitis. 3. Interval extensive medium and small vessel atherosclerosis. 4. Bilateral renal atrophy. No obstructive uropathy bilaterally. 5. Other lesser findings as discussed above. Concordant preliminary report from [facility], 03/08/2018.
--- NOTE | 2018-03-12 11:23 | CP.PCM.PN ---
Subjective - Date & Time of Evaluation Date of Evaluation: 03/12/18 Time of Evaluation: 11:22 - Subjective Subjective: Nephrology Consultation Note Assessment: Stable chronic pancreatitis Diabetic chronic Kidney Disease (E11.22) Hypertensive Chronic Kidney Disease (I12.0) End stage renal disease (N18.6) dependence on hemodialysis (Z99.2) (TTS) via AVF Anemia (D64.9), Hyperphosphatemia (E83.39), Secondary Hyperparathyroidism (E21.1), HTN (I12.0) Plan: Will plan for dialysis today. Continue with Nephrovite 1 tab/day. PRBC as needed for anemia. not on YANELY with dialysis as last Hb 9.3 but high BP. check Ferritin . started IV iron Increased phos binders, last phos level: 7 BP control with meds as ordered. Patient on RAAS kathy as losartan: increased to 100, added minoxidil 5/day Glycemic control, Dialysis consistent diet Further work up/management as per primary team Dose meds/antibiotics (if needed) for ESRD status. Avoid fleets enema/magnesium based laxatives. SW consult for outpt HD placement Thanks for allowing me to participate in care of your patient. Will follow patient with you. Please call if any Qs. had d/w team Dr Thor Ward Office: [phone] Subjective: Noted events overnight. Patients feels okay. Denies chest pain, palpitation, shortness of breath, leg swelling. All other negative except c/o pain abdomen Physical Examination: seen on HD General Appearance: Comfortable, in no acute respiratory distress, co-operative . Vitals reviewed and noted as below Head; Atraumatic, normocephalic ENT: no ulcers no thrush. Tongue is midline. Oropharynx: no rash or ulcers. EYES: Pupils are equal, round and reactive to light accommodation. Eye muscles and extraocular movement intact. Sclera is anicteric. Neck; supple no lymphadenopathy, no thyromegaly or bruit Lungs: Normal respiratory rate/effort. Breath sounds bilateral equal and clear Heart: Normal rate. s1s2 normal. No rub or gallop. Extremities: no edema. No varicose veins Neurological: Patient is alert, awake and oriented to person, place and time. No focal deficit. Strength bilateral appropriate and equal Skin: Warm and dry. Normal turgor. No rash. Palpitation: Normal elasticity for age Abdomen: Abdomen is soft. Bowel sounds +. There is no abdominal tenderness, no guarding/rigidity or organomegaly Psych: normal insight and normal affect/mood MSK: no joint tenderness or swelling. Digits and nails normal, no deformity : kidney or bladder not palpable Access: AVF left Labs/imaging reviewed. Past medical history, past surgical history, family history, social history, allergy reviewed and noted as below Family Hx: no hx of CKD. Non contributory Objective - Vital Signs/Intake and Output Vital Signs (last 24 hours): Temp Pulse Resp BP Pulse Ox 98.1 F 66 17 180/104 H 97 03/12/18 09:10 03/12/18 09:10 03/12/18 09:10 03/12/18 10:10 03/12/18 09:10 Intake and Output: 03/12/18 03/12/18 06:59 18:59 Intake Total 800 Balance 800 - Medications Medications: Current Medications Amlodipine Besylate (Norvasc) 10 mg PO DAILY REPLACED BY [facility] Last Admin: 03/12/18 10:44 Dose: 10 mg Carvedilol (Coreg) 6.25 mg PO BID REPLACED BY [facility] Last Admin: 03/12/18 10:45 Dose: 6.25 mg Clonidine HCl (Catapres) 0.3 mg PO Q6 REPLACED BY [facility] Last Admin: 03/12/18 05:45 Dose: 0.3 mg Docusate Sodium (Colace) 100 mg PO DAILY REPLACED BY [facility] Last Admin: 03/12/18 09:14 Dose: Not Given Enoxaparin Sodium (Lovenox) 30 mg SC DAILY REPLACED BY [facility] Last Admin: 03/12/18 09:16 Dose: Not Given Hydromorphone HCl (Dilaudid) 0.5 mg IVP Q6H PRN PRN Reason: Pain, severe (8-10) Last Admin: 03/12/18 10:19 Dose: 0.5 mg Insulin Aspart (Novolog) 0 unit SC [facility]; Protocol Last Admin: 03/12/18 08:21 Dose: Not Given Insulin Detemir (Levemir) 15 unit SC [facility] Last Admin: 03/11/18 21:50 Dose: Not Given Metoclopramide HCl (Reglan) 10 mg PO Q6H PRN PRN Reason: Nausea/Vomiting Pantoprazole Sodium (Protonix Inj) 40 mg IVP DAILY REPLACED BY [facility] Last Admin: 03/12/18 09:16 Dose: Not Given Tramadol HCl (Ultram) 25 mg PO TID PRN PRN Reason: Pain, moderate (4-7) Vitamin B Complex/Vit C/Folic Acid (Nephro-Arlyn) 1 tab PO 0800 REPLACED BY [facility] Last Admin: 03/12/18 08:23 Dose: 1 tab - Labs Labs: 03/11/18 16:38 03/12/18 06:14 PT 12.4 SECONDS (9.7-12.2) H 03/08/18 19:37 INR 1.1 03/08/18 19:37 APTT 31 SECONDS (21-34) 03/08/18 19:37
[2018-03-12] MEDS: Ferric Sodium Gluconat Complex 62.5 mg/5 ml Vial IVPB SCH (14:02)
[2018-03-12] MEDS: Insulin Detemir 100 units/ml Vial (Levemir) SC SCH (21:28)
[2018-03-12] MEDS: HYDROmorphone 1 mg/ml ISec IVP PRN (21:29)
[2018-03-13] MEDS: HYDROmorphone 1 mg/ml ISec IVP PRN ×2 (03:40→09:40)
--- NOTE | 2018-03-13 04:36 | PN ---
DATE: 03/12/2018 SUBJECTIVE: The patient was seen and examined at the bedside on 03/12/2018. According to the patient, he has intractable abdominal pain, medication is not helping. He is on a renal diet. was sitting at the bedside also. I explained to the patient that if he is refusing the pain will not get better, he should be completely n.p.o., then we will see how medication is working, and I increased his Dilaudid from 0.5 to 1 and make the patient n.p.o. except the medicine. Otherwise, no fever, no chills. No headache, no dizziness. No chest pain. No shortness of breath. PHYSICAL EXAMINATION: VITAL SIGNS: On admission temperature 98.1, pulse 52, respiratory rate 17, blood pressure 118/104, pulse oximetry 97%. HEENT: Head normocephalic, atraumatic. Eyes, PERRLA. Extraocular muscles are intact. Conjunctivae clear. Nose patent. NECK: Supple. No carotid bruits, JVD, or thyromegaly. CHEST: Bilaterally symmetrical. HEART: S1, S2 positive. LUNGS: Clear to auscultation. ABDOMEN: Soft. Bowel sounds present. No organomegaly. EXTREMITIES: No edema. No cyanosis. NEUROLOGIC: The patient is awake, alert. Moving all four extremities. No focal deficits. MEDICATIONS: Norvasc, Coreg, Catapres, Colace, Lovenox, Dilaudid, NovoLog, Levemir, Reglan, Protonix, multivitamins. LABORATORY DATA: White blood cells 6.4, hemoglobin 9.8, hematocrit 30.2, platelets 159. Sodium 134, potassium 5.7, BUN 30, creatinine 8.2, glucose 190. ASSESSMENT AND PLAN: Mr. Mike Woodall is a 47-year-old male with hyperkalemia, renal insufficiency, on hemodialysis three times a week, hyperglycemia, history of anemia, seen by Dr. Mcrae, gold be[employer]. The patient is diabetic, chronic kidney disease, hypertension, end-stage renal disease, hemodialysis-dependent, anemia, hyperphosphatemia, secondary hyperparathyroidism, history of pancreatitis, gastroesophageal reflux disease, dyspepsia, got blood transfusion, phosphorous binders, last phosphorous level was 7. Discussion done with the patient, the patient's , and the nurse. Gastrointestinal and deep vein thrombosis prophylaxis. Repeat labs. We will follow up. Brianna Zuniga MD [facility]
[2018-03-13] MEDS: (Novolog) Insulin Aspart, Recombinant 100 u/ml 10 ml vial SC SCH ×2 (08:12→12:21)
[2018-03-13] MEDS: Multivitamin Vitamin B Complex (Nephro-Vite) Tab PO SCH (08:22)
[2018-03-13] MEDS: LIPASE/PROTEASE/AMYLASE 21,000 U ECC PO SCH ×3 (08:22→17:49)
[2018-03-13 08:42] LABS: HEMOGLOBIN 9.1 g/dL (12.0-18.0); MEAN CELL VOLUME 86.4 fL (80.0-94.0); MEAN CORPUSCULAR HGB CONC 33.5 g/dL (33.0-37.0); MEAN PLATELET VOLUME 9.7 fL (7.2-11.7); RBC 3.15 Mil/uL (4.40-5.90); RED CELL DISTRIBUTION WIDTH 16.9 % (11.5-14.5); WHITE BLOOD COUNT 6.3 K/uL (4.8-10.8)
[2018-03-13 08:57] LABS: ALB/GLOB RATIO 1.2 (1.0-2.1); CALCIUM 8.7 mg/dl (8.6-10.4)
[2018-03-13] MEDS: Enoxaparin 30 mg Syringe SC SCH (09:39)
[2018-03-13] MEDS: Ferric Sodium Gluconat Complex 62.5 mg/5 ml Vial IVPB SCH (14:39)
[2018-03-13] MEDS: Ferric Sodium Gluconat Complex 125 MG in Sodium Chloride 0.9% 100 ML IVPB SCH (14:39)
[2018-03-13] MEDS: HYDROmorphone 0.5 mg/0.5 ml ISec IVP PRN ×2 (15:54→22:55)
[2018-03-13] MEDS ORDERED: Ferric Sodium Gluconat Complex 125 MG in Sodium Chloride 0.9% 100 ML IVPB SCH (16:00)
--- NOTE | 2018-03-13 16:11 | CP.PCM.PN ---
Subjective - Date & Time of Evaluation Date of Evaluation: 03/13/18 Time of Evaluation: 16:10 - Subjective Subjective: Nephrology Consultation Note Assessment: Stable chronic pancreatitis Diabetic chronic Kidney Disease (E11.22) Hypertensive Chronic Kidney Disease (I12.0) End stage renal disease (N18.6) dependence on hemodialysis (Z99.2) (TTS) via AVF Anemia (D64.9), Hyperphosphatemia (E83.39), Secondary Hyperparathyroidism (E21.1), HTN (I12.0) Plan: Will plan for dialysis tomorrow. Continue with Nephrovite 1 tab/day. PRBC as needed for anemia. started on YANELY with dialysis as last Hb 9.3 started IV iron Increased phos binders, last phos level: 7 BP control with meds as ordered. Patient on RAAS kathy as losartan: increased to 100, added minoxidil 5/day Glycemic control, Dialysis consistent diet Further work up/management as per primary team Dose meds/antibiotics (if needed) for ESRD status. Avoid fleets enema/magnesium based laxatives. SW consult for outpt HD placement. anticipate soon Thanks for allowing me to participate in care of your patient. Will follow patient with you. Please call if any Qs. had d/w team Dr Thor Ward Office: [phone] Subjective: Noted events overnight. Patients feels okay. Denies chest pain, palpitation, shortness of breath, leg swelling. All other negative except c/o pain abdomen;;chronic Physical Examination: General Appearance: Comfortable, in no acute respiratory distress, co-operative . Vitals reviewed and noted as below Head; Atraumatic, normocephalic ENT: no ulcers no thrush. Tongue is midline. Oropharynx: no rash or ulcers. EYES: Pupils are equal, round and reactive to light accommodation. Eye muscles and extraocular movement intact. Sclera is anicteric. Neck; supple no lymphadenopathy, no thyromegaly or bruit Lungs: Normal respiratory rate/effort. Breath sounds bilateral equal and clear Heart: Normal rate. s1s2 normal. No rub or gallop. Extremities: no edema. No varicose veins Neurological: Patient is alert, awake and oriented to person, place and time. No focal deficit. Strength bilateral appropriate and equal Skin: Warm and dry. Normal turgor. No rash. Palpitation: Normal elasticity for age Abdomen: Abdomen is soft. Bowel sounds +. There is no abdominal tenderness, no guarding/rigidity or organomegaly Psych: normal insight and normal affect/mood MSK: no joint tenderness or swelling. Digits and nails normal, no deformity : kidney or bladder not palpable Access: AVF left Labs/imaging reviewed. Past medical history, past surgical history, family history, social history, allergy reviewed and noted as below Family Hx: no hx of CKD. Non contributory Objective - Vital Signs/Intake and Output Vital Signs (last 24 hours): Temp Pulse Resp BP Pulse Ox 98.4 F 59 L 20 93/48 L 96 03/13/18 08:03 03/13/18 13:19 03/13/18 08:03 03/13/18 13:19 03/13/18 08:03 Intake and Output: 03/13/18 03/13/18 06:59 18:59 Intake Total 415 360 Balance 415 360 - Medications Medications: Current Medications Amlodipine Besylate (Norvasc) 10 mg PO DAILY [facility] Last Admin: 03/13/18 09:39 Dose: 10 mg Calcium Acetate (Phoslo) 1,334 mg PO ACTID [facility] Last Admin: 03/13/18 12:26 Dose: 1,334 mg Carvedilol (Coreg) 12.5 mg PO BID [facility] Last Admin: 03/13/18 09:39 Dose: 12.5 mg Clonidine HCl (Catapres) 0.3 mg PO Q6 [facility] Last Admin: 03/13/18 13:16 Dose: Not Given Docusate Sodium (Colace) 100 mg PO DAILY [facility] Last Admin: 03/13/18 09:39 Dose: 100 mg Enoxaparin Sodium (Lovenox) 30 mg SC DAILY [facility] Last Admin: 03/13/18 09:39 Dose: 30 mg Epoetin Sammy (Procrit) 4,000 unit IV TTS [facility] Hydromorphone HCl (Dilaudid) 0.5 mg IVP Q6H PRN PRN Reason: Pain, severe (8-10) Last Admin: 03/13/18 15:54 Dose: 0.5 mg Ferric Sodium Gluconate Complex 125 mg/ Sodium Chloride 110 mls @ 110 mls/hr IVPB Q24H [facility] Stop: 03/21/18 14:31 Last Admin: 03/13/18 14:39 Dose: 110 mls/hr Insulin Detemir (Levemir) 15 unit SC HS [facility] Last Admin: 03/12/18 21:28 Dose: 15 unit Losartan Potassium (Cozaar) 100 mg PO QPM [facility] Last Admin: 03/12/18 17:34 Dose: 100 mg Metoclopramide HCl (Reglan) 10 mg PO Q6H PRN PRN Reason: Nausea/Vomiting Minoxidil (Minoxidil) 5 mg PO DAILY [facility] Last Admin: 03/13/18 09:39 Dose: 5 mg Pantoprazole Sodium (Protonix Inj) 40 mg IVP DAILY [facility] Last Admin: 03/13/18 09:39 Dose: 40 mg Tramadol HCl (Ultram) 25 mg PO TID PRN PRN Reason: Pain, moderate (4-7) Vitamin B Complex/Vit C/Folic Acid (Nephro-Arlyn) 1 tab PO 0800 [facility] Last Admin: 03/13/18 08:22 Dose: 1 tab - Labs Labs: 03/13/18 08:20 03/13/18 08:20 PT 12.4 SECONDS (9.7-12.2) H 03/08/18 19:37 INR 1.1 03/08/18 19:37 APTT 31 SECONDS (21-34) 03/08/18 19:37
[2018-03-14] MEDS: HYDROmorphone 0.5 mg/0.5 ml ISec IVP PRN ×2 (05:10→11:26)
--- NOTE | 2018-03-14 06:12 | PN ---
DATE: 03/13/2018 SUBJECTIVE: The patient is 47-year-old male. The patient was seen and examined at the bedside on 03/13/2018. Looking comfortable. No fever, no chills. No nausea or vomiting, but still complaining of abdominal pain. I made her n.p.o. No fever. No chills. PHYSICAL EXAMINATION: VITAL SIGNS: Temperature 98.4, pulse 59, respiratory rate 20, blood pressure 92/48, pulse oximetry 96. HEENT: Head normocephalic and atraumatic. Eyes PERRLA. Extraocular movements intact. Conjunctivae clear. Nose patent. Mucous membranes moist. NECK: Supple. No carotid bruits. No JVD or thyromegaly. CHEST: Bilaterally symmetrical. HEART: S1 and S2 positive. LUNGS: Clear to auscultation. ABDOMEN: Soft. Bowel sounds present. No organomegaly, but tender, especially in the epigastric area. EXTREMITIES: No edema. No cyanosis. NEUROLOGIC: The patient is awake and alert. Moving all 4 extremities and following simple commands. MEDICATIONS: Norvasc, PhosLo, Catapres, Colace, Lovenox, Procrit, iron, insulin, losartan, metoclopramide, minoxidil, pantoprazole, tramadol, and vitamin E. LABORATORY DATA: White blood cells 6.3, hemoglobin 9.1, hematocrit 27.2, platelets 151. Sodium 135, potassium 4.9, BUN 33, creatinine 5.8, and glucose 96. ASSESSMENT AND PLAN: Mr. Mike Woodall is 47-year-old male with anemia; renal insufficiency, on hemodialysis; hyperglycemia; chronic pancreatitis, has chronic kidney disease, hypertension, hyperphosphatemia, secondary hyperparathyroidism. The patient is getting dialysis tomorrow. Continue Nephro-Arlyn a month. Packed RBCs as needed for anemia. Continue phosphorous binders. The patient is on losartan , seen by [employer], need good glycemic control , Discussion done with the patient and the patient's . Gastrointestinal and deep venous thrombosis prophylaxis. Repeat labs. We will follow up. Brianna Zuniga MD [facility] # [id number] MTDD
[2018-03-14] MEDS: Multivitamin Vitamin B Complex (Nephro-Vite) Tab PO SCH (08:11)
[2018-03-14] MEDS: LIPASE/PROTEASE/AMYLASE 21,000 U ECC PO SCH ×3 (08:11→17:40)
[2018-03-14] MEDS ORDERED: DiphenhydrAMINE 50 mg/ml Inj IVP STA (09:10)
[2018-03-14] MEDS ORDERED: DiphenhydrAMINE 50 mg/ml Inj IVP ONE (09:15)
[2018-03-14] MEDS: Enoxaparin 30 mg Syringe SC SCH (09:23)
[2018-03-14] MEDS ORDERED: EPOETIN ALFA 4,000 UNIT/ML ML Dialysis IV SCH (10:00)
[2018-03-14] MEDS ORDERED: Ferric Sodium Gluconat Complex 62.5 mg/5 ml Vial ONE (11:35)
[2018-03-14] MEDS: Ferric Sodium Gluconat Complex 125 MG in Sodium Chloride 0.9% 100 ML IVPB SCH (14:51)
--- NOTE | 2018-03-14 15:09 | CP.PCM.PN ---
Subjective - Date & Time of Evaluation Date of Evaluation: 03/14/18 Time of Evaluation: 15:08 - Subjective Subjective: Nephrology Consultation Note Assessment: Stable chronic pancreatitis Diabetic chronic Kidney Disease (E11.22) Hypertensive Chronic Kidney Disease (I12.0) End stage renal disease (N18.6) dependence on hemodialysis (Z99.2) (TTS) via AVF Anemia (D64.9), Hyperphosphatemia (E83.39), Secondary Hyperparathyroidism (E21.1), HTN (I12.0) Plan: Will plan for dialysis today. Continue with Nephrovite 1 tab/day. PRBC as needed for anemia. started on YANELY with dialysis as last Hb 9.3 started IV iron Increased phos binders, last phos level: 7 BP control with meds as ordered. Patient on RAAS kathy as losartan: increased to 100, added minoxidil 5/day Glycemic control, Dialysis consistent diet Further work up/management as per primary team Dose meds/antibiotics (if needed) for ESRD status. Avoid fleets enema/magnesium based laxatives. SW consult for outpt HD placement. pt has spot to start HD as outpt MWF tomorrow onwards at [facility] for d/c from renal perspective Thanks for allowing me to participate in care of your patient. Will follow patient with you. Please call if any Qs. had d/w team Dr Thor Ward Office: [phone] Subjective: Noted events overnight. Patients feels okay. Denies chest pain, palpitation, shortness of breath, leg swelling. All other negative Physical Examination: General Appearance: Comfortable, in no acute respiratory distress, co-operative . Vitals reviewed and noted as below Head; Atraumatic, normocephalic ENT: no ulcers no thrush. Tongue is midline. Oropharynx: no rash or ulcers. EYES: Pupils are equal, round and reactive to light accommodation. Eye muscles and extraocular movement intact. Sclera is anicteric. Neck; supple no lymphadenopathy, no thyromegaly or bruit Lungs: Normal respiratory rate/effort. Breath sounds bilateral equal and clear Heart: Normal rate. s1s2 normal. No rub or gallop. Extremities: no edema. No varicose veins Neurological: Patient is alert, awake and oriented to person, place and time. No focal deficit. Strength bilateral appropriate and equal Skin: Warm and dry. Normal turgor. No rash. Palpitation: Normal elasticity for age Abdomen: Abdomen is soft. Bowel sounds +. There is no abdominal tenderness, no guarding/rigidity or organomegaly Psych: normal insight and normal affect/mood MSK: no joint tenderness or swelling. Digits and nails normal, no deformity : kidney or bladder not palpable Access: AVF left Labs/imaging reviewed. Past medical history, past surgical history, family history, social history, allergy reviewed and noted as below Family Hx: no hx of CKD. Non contributory Objective - Vital Signs/Intake and Output Vital Signs (last 24 hours): Temp Pulse Resp BP Pulse Ox 98.5 F 64 16 170/73 H 97 03/14/18 09:42 03/14/18 09:42 03/14/18 09:42 03/14/18 12:35 03/14/18 09:05 Intake and Output: 03/14/18 03/14/18 06:59 18:59 Intake Total 415 Balance 415 - Medications Medications: Current Medications Amlodipine Besylate (Norvasc) 10 mg PO DAILY [facility] Last Admin: 03/14/18 09:23 Dose: Not Given Calcium Acetate (Phoslo) 1,334 mg PO ACTID [facility] Last Admin: 03/14/18 12:06 Dose: Not Given Carvedilol (Coreg) 12.5 mg PO BID [facility] Last Admin: 03/14/18 09:22 Dose: Not Given Clonidine HCl (Catapres) 0.3 mg PO Q6 [facility] Last Admin: 03/14/18 12:05 Dose: Not Given Docusate Sodium (Colace) 100 mg PO DAILY [facility] Last Admin: 03/14/18 09:22 Dose: Not Given Enoxaparin Sodium (Lovenox) 30 mg SC DAILY [facility] Last Admin: 03/14/18 09:23 Dose: Not Given Epoetin Sammy (Procrit) 4,000 unit IV TTS [facility] Last Admin: 03/14/18 11:12 Dose: 4,000 unit Heparin Sodium (Porcine) (Heparin) 2,000 units IVP TTS [facility] Last Admin: 03/14/18 11:13 Dose: 2,000 units Hydromorphone HCl (Dilaudid) 0.5 mg IVP Q6H PRN PRN Reason: Pain, severe (8-10) Last Admin: 03/14/18 11:26 Dose: 0.5 mg Ferric Sodium Gluconate Complex 125 mg/ Sodium Chloride 110 mls @ 110 mls/hr IVPB Q24H [facility] Stop: 03/21/18 14:31 Last Admin: 03/14/18 14:51 Dose: Not Given Insulin Detemir (Levemir) 15 unit SC HS [facility] Last Admin: 03/12/18 21:28 Dose: 15 unit Losartan Potassium (Cozaar) 100 mg PO QPM [facility] Last Admin: 03/13/18 17:48 Dose: 100 mg Metoclopramide HCl (Reglan) 10 mg PO Q6H PRN PRN Reason: Nausea/Vomiting Minoxidil (Minoxidil) 5 mg PO DAILY [facility] Last Admin: 03/14/18 09:23 Dose: Not Given Pantoprazole Sodium (Protonix Ec Tab) 40 mg PO DAILY [facility] Tramadol HCl (Ultram) 25 mg PO TID PRN PRN Reason: Pain, moderate (4-7) Vitamin B Complex/Vit C/Folic Acid (Nephro-Arlyn) 1 tab PO 0800 [facility] Last Admin: 03/14/18 08:11 Dose: 1 tab - Labs Labs: 03/13/18 08:20 03/13/18 08:20 PT 12.4 SECONDS (9.7-12.2) H 03/08/18 19:37 INR 1.1 03/08/18 19:37 APTT 31 SECONDS (21-34) 03/08/18 19:37
[2018-03-14] MEDS ORDERED: HYDROmorphone 0.5 mg/0.5 ml ISec IVP STA (15:22)
[2018-03-14 17:08] VITALS: PULSE 67; RESP 20; TEMP 98; O2SAT 96
--- NOTE | 2018-03-14 17:37 | CP.PCM.PN ---
Subjective - Date & Time of Evaluation Date of Evaluation: 03/14/18 Time of Evaluation: 15:00 - Subjective Subjective: Patient seen today after HD states feeling better, abdominal pain improved , tolerating diet diet advanced and tolerated well vss - stable after HD Objective - Vital Signs/Intake and Output Vital Signs (last 24 hours): Temp Pulse Resp BP Pulse Ox 98 F 67 20 168/72 H 96 03/14/18 16:00 03/14/18 16:00 03/14/18 16:00 03/14/18 16:00 03/14/18 16:00 Intake and Output: 03/14/18 03/14/18 06:59 18:59 Intake Total 415 580 Balance 415 580 - Medications Medications: Current Medications Amlodipine Besylate (Norvasc) 10 mg PO DAILY [facility] Last Admin: 03/14/18 09:23 Dose: Not Given Calcium Acetate (Phoslo) 1,334 mg PO ACTID [facility] Last Admin: 03/14/18 12:06 Dose: Not Given Carvedilol (Coreg) 12.5 mg PO BID [facility] Last Admin: 03/14/18 09:22 Dose: Not Given Clonidine HCl (Catapres) 0.3 mg PO Q6 [facility] Last Admin: 03/14/18 12:05 Dose: Not Given Docusate Sodium (Colace) 100 mg PO DAILY [facility] Last Admin: 03/14/18 09:22 Dose: Not Given Enoxaparin Sodium (Lovenox) 30 mg SC DAILY [facility] Last Admin: 03/14/18 09:23 Dose: Not Given Epoetin Sammy (Procrit) 4,000 unit IV TTS [facility] Last Admin: 03/14/18 11:12 Dose: 4,000 unit Heparin Sodium (Porcine) (Heparin) 2,000 units IVP TTS [facility] Last Admin: 03/14/18 11:13 Dose: 2,000 units Hydromorphone HCl (Dilaudid) 0.5 mg IVP Q6H PRN PRN Reason: Pain, severe (8-10) Last Admin: 03/14/18 11:26 Dose: 0.5 mg Ferric Sodium Gluconate Complex 125 mg/ Sodium Chloride 110 mls @ 110 mls/hr IVPB Q24H [facility] Stop: 03/21/18 14:31 Last Admin: 03/14/18 14:51 Dose: Not Given Insulin Detemir (Levemir) 15 unit SC HS [facility] Last Admin: 03/12/18 21:28 Dose: 15 unit Losartan Potassium (Cozaar) 100 mg PO QPM [facility] Last Admin: 03/13/18 17:48 Dose: 100 mg Metoclopramide HCl (Reglan) 10 mg PO Q6H PRN PRN Reason: Nausea/Vomiting Minoxidil (Minoxidil) 5 mg PO DAILY [facility] Last Admin: 03/14/18 09:23 Dose: Not Given Pantoprazole Sodium (Protonix Ec Tab) 40 mg PO DAILY [facility] Tramadol HCl (Ultram) 25 mg PO TID PRN PRN Reason: Pain, moderate (4-7) Vitamin B Complex/Vit C/Folic Acid (Nephro-Arlyn) 1 tab PO 0800 [facility] Last Admin: 03/14/18 08:11 Dose: 1 tab - Labs Labs: 03/13/18 08:20 03/13/18 08:20 PT 12.4 SECONDS (9.7-12.2) H 03/08/18 19:37 INR 1.1 03/08/18 19:37 APTT 31 SECONDS (21-34) 03/08/18 19:37 Assessment and Plan - Assessment and Plan (Free Text) Assessment: A/P 47 yr old Diabetes, Gastritis, HTN, chronic Pancreatitis End Stage Renal Disease on HD admitted fro abdominal pain, diarrhea Patient tolerated diet As per Dr. Ward patient has a new HD slot [facility] and SW confirmed starting at 340 pm tomorrow D/W Dr. Goode, cleared for discharge home today and f/u with HD center for HD Discharge plan discussed with patient who understands and agrees with plan RX given to patient
[2018-03-14 17:49] VITALS: BP 163/73
[2018-03-15] MEDS ORDERED: Pantoprazole 40 mg EC Tab PO SCH (10:00)
[2018-03-15 16:12] LABS: SOURCE STOOL
== END 2018-03-14 18:09 | disposition home or self-care (01) | DRG 438 ==
LOC: C.ER 17:03 → C.3T 03-09 00:32 → OBSVTOIN 03-11 10:47
PROVIDERS: ADMIT Internal Medicine; ATTEND Internal Medicine
PROC: 5A1D70Z Performance of Urinary Filtration, Intermittent, Less than 6 Hours Per Day (ICD-10-PCS; principal; 2018-03-12)
PROC: 5A1D70Z Performance of Urinary Filtration, Intermittent, Less than 6 Hours Per Day (ICD-10-PCS; 2018-03-14)
DX: K85.90 Acute pancreatitis without necrosis or infection, unspecified (principal); N18.6 End stage renal disease; I12.0 Hypertensive chronic kidney disease with stage 5 chronic kidney disease or end stage renal disease; N25.81 Secondary hyperparathyroidism of renal origin; Z68.1 Body mass index [BMI] 19.9 or less, adult; K86.1 Other chronic pancreatitis; Z79.4 Long term (current) use of insulin; Z99.2 Dependence on renal dialysis; E11.65 Type 2 diabetes mellitus with hyperglycemia; E11.22 Type 2 diabetes mellitus with diabetic chronic kidney disease; E11.43 Type 2 diabetes mellitus with diabetic autonomic (poly)neuropathy; K31.84 Gastroparesis; K29.70 Gastritis, unspecified, without bleeding; K20.9 Esophagitis, unspecified; E83.39 Other disorders of phosphorus metabolism; D64.9 Anemia, unspecified; K44.9 Diaphragmatic hernia without obstruction or gangrene